=== PATIENT | female | born 1950 | race Caucasian/White ===

== ENCOUNTER 2018-05-29 13:33 | Emergency (ER) | payer MEDICARE, BC ==
[2018-05-29] MEDS: NA PHOSPHATE/BIPHOS 133 ML ENEMA PR (16:30)
== END 2018-05-29 18:47 | disposition home or self-care (01) ==
LOC: FTE 13:33
DX: K59.00 Constipation, unspecified (principal); Z85.3 Personal history of malignant neoplasm of breast
CPT/HCPCS: 99283